=== PATIENT | female | born 1945 | race Caucasian/White ===

== ENCOUNTER → 2017-01-25 | Outpatient (CLI) | payer OTHER ==
[~2017-01-25] MED LIST: ASPEC81 PO; CALC500C70 PO; CO-Q10 PO; FLUV1CAP PO; LEVO50TA60 PO; LISI-461 PO; MULT-506 PO; OMEG10007 PO; PRM/45 PO; PSYL55.43; VITA100C4 PO
--- NOTE | 2017-01-25 14:57 | MAMMOGRAPHY REPORT ---
BILATERAL DIGITAL SCREENING MAMMOGRAM WITH CAD: 01/25/2017 CLINICAL HISTORY: Routine screening. Patient has no complaints. TECHNIQUE: Bilateral CC and MLO views were obtained. Current study was also evaluated with a Comput er Aided Detection (CAD) system. COMPARISON: Comparison is made to exams dated: 01/21/2016 mammogram, 09/04/2014 mammogram, 08/13/2013 mammogram, 08/10/2012 mammogram, 07/20/2011 mammogram, and 07/17/2010 mammogram - [facility]. BREAST COMPOSITION: There are scattered areas of fibroglandular density in both breasts. FINDINGS: There are minimal vascular calcification and scattered punctate benign-appearing microcalc ifications bilaterally. No suspicious mass, architectural distortion or cluster of microcalcificati ons is seen. IMPRESSION: ACR BI-RADS CATEGORY 1: NEGATIVE There is no mammographic evidence of malignancy. A 1 year screening mammogram is recommended. The p atient will receive written notification of the results. Approximately 10% of breast cancers are not detected with mammography. A negative mammographic repor t should not delay biopsy if a clinically suggestive mass is present. Joselin Woo M.D. ay/:01/25/2017 11:24:03 Bereavement Coordinator: Kathya ALLAN(Jason)(M), [facility] letter sent: Normal 1/2 BI-RADS Code: ACR BI-RADS Category 1: Negative
== END | disposition home or self-care (01) ==
LOC: C.MAMM 10:40
PROVIDERS: ATTEND Obstetrics & Gynecology
DX: Z12.31 Encounter for screening mammogram for malignant neoplasm of breast (principal)

== ENCOUNTER → 2017-03-08 | Outpatient (CLI) | payer OTHER ==
[2017-03-08 17:25] LABS: BASO % 0.5 %; BASO ABS # 0.02 K/uL (0-0.2); COMPLETE YES; EOS % 2.8 %; HEMATOCRIT 38.6 % (37-47); LYMPH ABS # 1.12 K/uL (1.2-3.4); MEAN CELL VOLUME 89.6 fL (80-100); MEAN CORPUSCULAR HEMOGLOBIN 29.7 pg (25-34); MEAN CORPUSCULAR HGB CONC 33.2 g/dl (32-36); MEAN PLATELET VOLUME 9.5 fL (7.4-10.4); MONO % 11.5 %; NEUT % 57.2 %; PLATELET COUNT 227 K/uL (130-400); RED BLOOD COUNT 4.31 M/uL (4.2-5.4)
[2017-03-08 17:41] LABS: ALT/SGPT 21 U/L (12-78); AST/SGOT 12 U/L (15-37); BLOOD UREA NITROGEN 15 mg/dl (7-18); BUN/CREATININE RATIO 18.7 (10-20); CALCIUM 8.5 mg/dl (8.5-10.1); CARBON DIOXIDE 28 mmol/L (21-32); CHLORIDE 104 mmol/L (98-107); CREATININE 0.81 mg/dl (0.60-1.20); GLUCOSE 98 mg/dl (70-99); POTASSIUM 3.7 mmol/L (3.5-5.1); SODIUM 138 mmol/L (136-145)
[2017-03-08 17:53] LABS: ALB/GLOB RATIO 1.1 (0.9-2); ALKALINE PHOSPHATASE 45 U/L (45-117); CHOLESTEROL 194 mg/dl (0-200); HDL CHOLESTEROL 65 mg/dl; LDL CHOLESTEROL CALCULATED 112 mg/dl; TRIGLYCERIDES 87 mg/dl (0-150); VERY LOW DENSITY LIPOPROT CALC 17 mg/dl
== END | disposition home or self-care (01) ==
LOC: C.LABBFT 10:32
PROVIDERS: ATTEND Internal Medicine Geriatric Medicine
DX: I10 Essential (primary) hypertension (principal); E03.9 Hypothyroidism, unspecified; E78.5 Hyperlipidemia, unspecified; N20.0 Calculus of kidney; M85.80 Other specified disorders of bone density and structure, unspecified site; E55.9 Vitamin D deficiency, unspecified; L40.9 Psoriasis, unspecified; K58.9 Irritable bowel syndrome, unspecified

== ENCOUNTER → 2017-08-18 | Outpatient (CLI) | payer OTHER ==
[2017-08-18 13:57] LABS: URINE APPEARANCE CLEAR (CLEAR); URINE BILIRUBIN NEG (NEG); URINE COLOR DK YELLOW; URINE EPITHELIAL CELL AUTO >30 /lpf (0-5); URINE NITRITE NEG (NEG); URINE SPECIFIC GRAVITY 1.022 (1.000-1.030); UROBILINOGEN NEG (NEG); ZZUR CULT IF INDIC CLEAN CATCH NO
[2017-08-18 14:25] LABS: MANUAL MICROSCOPIC REQUIRED? NO; REVIEW REQ? NO
== END | disposition home or self-care (01) ==
LOC: C.LABSPEC 13:15
PROVIDERS: ATTEND Obstetrics & Gynecology
DX: R35.0 Frequency of micturition (principal)

== ENCOUNTER → 2017-08-18 | Outpatient (CLI) | payer OTHER | END | disposition home or self-care (01) | LOC: C.PAPS 13:44 | PROVIDERS: ATTEND Obstetrics & Gynecology | DX: Z12.72 Encounter for screening for malignant neoplasm of vagina (principal); N39.3 Stress incontinence (female) (male); Z90.710 Acquired absence of both cervix and uterus; Z90.722 Acquired absence of ovaries, bilateral; R35.0 Frequency of micturition ==